=== PATIENT | male | born 1965 | race Caucasian/White ===

== ENCOUNTER 2021-12-20 17:23 | Emergency (ER) | payer OTHER ==
[~2021-12-20] VITALS: Ht 180.3 cm; Wt 157.9 kg
[2021-12-20 17:40] VITALS: BP 168/83
--- NOTE | 2021-12-20 17:50 | NUR ---
PT AMB TO BED 12.
--- NOTE | 2021-12-20 18:31 | NUR ---
PT C/O GENERALIZED ABDOMINAL PAIN RADIATING TO BACK WITH DYSURIA SINCE TODAY.
[2021-12-20 19:06] LABS: BASOPHILS # (AUTO) 0.1 K/uL (0.00-0.22); BASOPHILS % (AUTO) 0.6 % (0.0-2.0); EOSINOPHILS # (AUTO) 0.2 K/uL (0-0.4); EOSINOPHILS % (AUTO) 1.6 % (0.0-4.0); HEMATOCRIT 40.3 % (36-52); LYMPHOCYTES % (AUTO) 20.1 % (20.5-51.1); MEAN CORPUSCULAR HEMOGLOBIN 29 pg (27-31); MEAN CORPUSCULAR HGB CONC 35 g/dL (33-37); MONOCYTES # (AUTO) 0.7 K/uL (0.8-1.0); MONOCYTES % (AUTO) 6.9 % (1.7-9.3); NEUTROPHILS # (AUTO) 6.9 K/uL (1.8-7.7); NEUTROPHILS % (AUTO) 70.8 % (42.2-75.2); PLATELET COUNT (AUTO) 237 K/uL (140-450); RED BLOOD CELL COUNT(AUTO) 4.91 MIL/uL (4.20-6.10); RED CELL DISTRIBUTION WIDTH 13.2 % (11.6-13.7); WHITE BLOOD COUNT (AUTO) 9.7 K/uL (4.8-10.8)
[2021-12-20] MEDS ORDERED: NACL 0.9% 1,000 ML IV ONE (19:25)
[2021-12-20] MEDS ORDERED: MORPHINE SULFATE 4 MG/ML SYR IVP ONE (19:25)
[2021-12-20 19:34] LABS: ALBUMIN 3.5 g/dL (3.4-5.0); ANION GAP 10.7 (8-16); CARBON DIOXIDE 31.8 mmol/L (21-32); CREATININE 1.3 mg/dL (0.6-1.3); POTASSIUM 3.5 mmol/L (3.5-5.1); TOTAL BILIRUBIN 0.3 mg/dL (0.0-1.0)
[2021-12-20] MEDS ORDERED: LIDOCAINE 5% 1 EA PATCH TP ONE (19:45)
--- NOTE | 2021-12-20 20:05 | NUR ---
PT REFUSED IV. STATES HE DOESNT NEED IV FLUIDS WELL MORPHINE. ERMD MADE AWARE.
--- NOTE | 2021-12-20 20:10 | NUR ---
STRAIGHT CATH PT USING STERILE TECHNIQUE WITH YELLOW URINE ABOUT 20CC OF RETURN.
--- NOTE | 2021-12-20 22:55 | NUR ---
ELYSSA LEMOS CALLED REQUESTING UPDATE FOR POSSIBLE ADMISSION
[2021-12-20] MEDS ORDERED: TAMS0.4C96 PO (23:05)
[2021-12-20] MEDS ORDERED: LID5T TP (23:05)
[2021-12-20] MEDS ORDERED: CEPH-588 PO (23:06)
[2021-12-20 23:15] VITALS: BP 168/83
--- NOTE | 2021-12-20 23:15 | NUR ---
Patient does not wish to proceed with medical care recommended by . Patient given information related to possible complications, up to and including , which could occur as a result of leaving hospital at this time. Patient verbalizes understanding of risks involved leaving against medical advice. Patient has signed AMA form.
[2021-12-21] MEDS ORDERED: LIDOCAINE 5% 1 EA PATCH TP SCH (09:00)
== END 2021-12-20 23:15 | disposition left against medical advice (07) ==
LOC: MED 17:23
DX: N20.1 Calculus of ureter (principal); M54.50 Low back pain, unspecified
CPT/HCPCS: 36415; 80053; 83690; 85025; 99284; J2270